=== PATIENT | male | born 1980 | race Caucasian/White ===

== ENCOUNTER 2021-07-13 20:40 | Emergency (ER) | payer MEDICAID, SELFPAY ==
--- NOTE | ~2021-07-13 | XR_ITS ---
EXAMINATION: XR chest 1V portable INDICATION: Cough, labored breathing TECHNIQUE: Portable AP chest at 2117 hours COMPARISON: None available FINDINGS: The heart size is normal. There are minimal opacities of the mid and lower lung zones. No p leural effusion or pneumothorax is identified. The visualized osseous structures are unremarkable. IMPRESSION: 1. Minimal airspace opacities of the mid and lower lung zones, consistent with atelectasis versus pne umonia versus pulmonary edema. Reviewed, dictated and finalized at location F. IMPRESSION: 1. Minimal airspace opacities of the mid and lower lung zones, consistent with atelectasis versus pneumonia versus pulmonary edema.
[2021-07-13 20:42] VITALS: BP 142/84; PULSE 97; RESP 15; TEMP 37; O2SAT 98
[2021-07-13 20:50] VITALS: PULSE 100; RESP 16
--- NOTE | 2021-07-13 20:55 | ECG_ITS ---
Measurements Intervals [place] Rate: 102 P: 61 [place]: 138 QRS: 18 QRSD: 102 T: 17 QT: 365 QTc: 476 Interpretive Statements SINUS TACHYCARDIA POSSIBLE LEFT ATRIAL ENLARGEMENT [-0.1mV P WAVE IN V1/V2] POSSIBLE RIGHT VENTRICULAR CONDUCTION DELAY [RSR (QR) IN V1/V2] ABNORMAL RHYTHM ECG NO PREVIOUS ECG AVAILABLE FOR COMPARISON Electronically Signed On 07-14-2021 13:41:43 CDT by Ynes Ureña M.D.
[2021-07-13] MEDS: ALBUTEROL SULFATE NEB 2.5 MG/0.5 ML INH INHALATION (20:58)
[2021-07-13 21:05] VITALS: PULSE 102; RESP 12
--- NOTE | 2021-07-13 21:05 | ED.SOB ---
HPI - SOB/Dyspnea General Chief Complaint: Shortness of Breath/Dyspnea Stated Complaint: SOB Time Seen by Provider: 07/13/21 20:45 Source: patient Mode of arrival: EMS Limitations: no limitations History of Present Illness HPI Narrative: Pt presents with SOB worsening over the last few days. Pt denies fever. Pt has asthma history and has had intermittent SOB since getting covid last year. Pt is worried he may have pneumonia. MD elicited complaint: shortness of breath Pertinent past history: asthma Timing: constant Severity: moderate Exacerbating factors: exertion Relieving factors: bronchodilators Known history of: asthma Treatment prior to arrival: bronchodilator Related Data Allergies Allergy/AdvReac Type Severity Reaction Status Date / Time No Known Allergies Allergy Verified 07/13/21 20:47 Review of Systems Review of Systems: All systems reviewed & are unremarkable except as noted in HPI and below Exam Const: General: no acute distress Orientation/consciousness: patient oriented x3 HENMT: Head: normal to inspection Neck: Neck: normal visual inspection and no lymphadenopathy Chest: Chest palpation & inspection: normal inspection of the chest Resp: Effort & Inspection: retractions, tachypneic and uses accessory muscles Auscultation: wheezes Cardio: Rate: tachycardic GI: GI Palp: Yes Soft to palpation Auscultation: normal bowel sounds Skin: General skin exam: normal color Rashes: no rashes Neuro: General: patient oriented x3, moves all extremities, no meningeal signs and no focal motor deficits Extrem: General: normal to inspection Psych: Mental Status: mental status grossly normal Thought content: Yes Normal thought content present Course Vital Signs Vital signs: Vital Signs Temperature 98.6 F 07/13/21 20:42 Pulse Rate 97 07/13/21 20:42 Respiratory Rate 15 07/13/21 20:42 Blood Pressure 142/84 H 07/13/21 20:42 Pulse Oximetry 98 07/13/21 20:42 Temperature 98.6 F 07/13/21 20:42 Pulse Rate 102 H 07/13/21 21:14 Respiratory Rate 12 07/13/21 21:05 Blood Pressure 142/84 H 07/13/21 20:42 Pulse Oximetry 98 07/13/21 21:14 MDM - SOB/Dyspnea Lab Data Result diagrams: 07/13/21 21:34 07/13/21 21:35 Labs: Lab Results 04/07/13/21 07/13/21 Range/Units 21:34 21:35 21:35 WBC 9.4 (4.5-10.0) K/mm3 RBC 4.42 L (4.6-6.20) M/mm3 Hgb 13.2 L (14.0-18.0) g/dL Hct 38.9 L (42.0-52.0) % MCV 88.0 (80-100) fl MCH 29.9 (26-34) pg MCHC 33.9 (32-36) g/dl RDW 12.7 (11.5-14.5) % Plt Count 232 (150-375) k/mm3 MPV 11.5 H (7.4-10.4) fl Immature Gran % (Auto) 0.2 (0-0.5) % Neut % (Auto) 71.2 (45.5-73.1) % Lymph % (Auto) 16.9 L (18.3-44.2) % [place] % (Auto) 7.2 (2.6-8.5) % Eos % (Auto) 3.4 (0-4.4) % Baso % (Auto) 1.1 (0.2-1.2) % Lymph # (Auto) 1.59 (0.9-3.2) K/mm3 [place] # (Auto) 0.7 H (0.1-0.6) K/mm3 Eos # (Auto) 0.3 (0-0.3) K/mm3 Baso # (Auto) 0.1 (0.0-0.1) K/mm3 Abs Immat Gran (auto) 0.02 (0.00-0.031) K/mm3 Absolute Neuts (auto) 6.7 (1.3-6.7) K/mm3 Absolute Nucleated RBC 0.0 (0.0-0.012) K/mm3 Nucleated RBC % 0.0 (0.0-0.2) % % Immature Plt Fraction 7.6 (0.9-11.2) % Sodium 135 L (137-145) mmol/L Potassium 3.4 (3.4-5.0) mmol/L Chloride 102 (98-107) mmol/L Carbon Dioxide 23 (22-30) mmol/L Anion Gap 10 (8-16) mmol/L BUN 22 H (9-20) mg/dL Creatinine 0.90 (0.7-1.3) mg/dL Estim Creat Clear Calc 127 ml/min Estimated GFR > 60 (59 - ) Glucose 116 H (65-110) mg/dL Calcium 9.1 (8.4-10.2) mg/dL Magnesium 2.1 (1.6-2.3) mg/dL Total Bilirubin 0.8 (0.2-1.3) mg/dL AST 105 H (17-59) U/L ALT 51 H (4-50) U/L Alkaline Phosphatase 93 (38-126) U/L NT-Pro-B Natriuret Pep Pending Total Protein 8.0 (6.3-8.2) g/dL Albumin 4.7 (3.5-5.1) g/dL ECG Data EK
[2021-07-13] MEDS: methylPREDNISolone SOD SUCC 125 MG VIAL IV PUSH (21:11)
[2021-07-13 21:14] VITALS: PULSE 102; O2SAT 98
[2021-07-13 21:43] LABS: Basophils Absolute Auto 0.1 K/mm3 (0.0-0.1); Basophils Percent Auto 1.1 % (0.2-1.2); Eosinophils Absolute Auto 0.3 K/mm3 (0-0.3); Eosinophils Percent Auto 3.4 % (0-4.4); Hematocrit 38.9 % (42.0-52.0); Hemoglobin 13.2 g/dL (14.0-18.0); Immature Granulocyte Absolute 0.02 K/mm3 (0.00-0.031); Immature Granulocyte Percent A 0.2 % (0-0.5); Immature Platelet Fraction Pct 7.6 % (0.9-11.2); Lymphocytes Absolute Auto 1.59 K/mm3 (0.9-3.2); Lymphocytes Percent Auto 16.9 % (18.3-44.2); Mean Corpuscular HGB Conc 33.9 g/dl (32-36); Mean Corpuscular Hemoglobin 29.9 pg (26-34); Mean Platelet Volume 11.5 fl (7.4-10.4); Monocytes Absolute Auto 0.7 K/mm3 (0.1-0.6); Monocytes Percent Auto 7.2 % (2.6-8.5); Neutrophils Absolute Auto 6.7 K/mm3 (1.3-6.7); Neutrophils Percent Auto 71.2 % (45.5-73.1); Platelet Count Result 232 k/mm3 (150-375); Red Blood Count 4.42 M/mm3 (4.6-6.20); Red Cell Distribution Width 12.7 % (11.5-14.5); White Blood Count 9.4 K/mm3 (4.5-10.0)
[2021-07-13 21:51] LABS: Alanine Aminotransferase 51 U/L (4-50); Albumin Level 4.7 g/dL (3.5-5.1); Alkaline Phosphatase 93 U/L (38-126); Anion Gap 10 mmol/L (8-16); Aspartate Amino Transferase 105 U/L (17-59); Bilirubin,Total 0.8 mg/dL (0.2-1.3); Blood Urea Nitrogen 22 mg/dL (9-20); Calcium 9.1 mg/dL (8.4-10.2); Carbon Dioxide 23 mmol/L (22-30); Chloride 102 mmol/L (98-107); Estimated CRCL calculation 127 ml/min; Estimated Glomerular Filt Rate > 60; Glucose 116 mg/dL (65-110); Magnesium 2.1 mg/dL (1.6-2.3); Potassium 3.4 mmol/L (3.4-5.0); Sodium 135 mmol/L (137-145)
[2021-07-13 22:11] LABS: NT Pro B Type Natriuretic Pept 118 pg/mL (5-100)
[2021-07-13 22:27] VITALS: BP 117/90; PULSE 110; RESP 22; O2SAT 100
[2021-07-13 23:00] VITALS: BP 123/87; PULSE 88; RESP 14; O2SAT 97
== END 2021-07-13 23:00 | disposition home or self-care (01) ==
PROVIDERS: Emergency Provider Emergency Medicine
DX: J45.901 Unspecified asthma with (acute) exacerbation (principal); Z86.16 Personal history of COVID-19; R00.0 Tachycardia, unspecified; R94.31 Abnormal electrocardiogram [ECG] [EKG]
CPT/HCPCS: 36415; 71045; 80053; 83735; 83880; 85025; 85055; 87040; 93005; 94640; 96374; 99284; J2930

== ENCOUNTER 2021-07-14 10:10 | Emergency (ER) | payer MEDICAID, SELFPAY ==
[2021-07-14 10:11] VITALS: BP 113/67; PULSE 102; RESP 22; TEMP 36.8; O2SAT 95
--- NOTE | 2021-07-14 10:31 | ED.ASTHMA ---
HPI - Asthma General Chief Complaint: Asthma Stated Complaint: asthma attack Time Seen by Provider: 07/14/21 10:26 Source: patient Mode of arrival: ambulatory Limitations: no limitations History of Present Illness HPI Narrative: Patient is a 40-year-old male complaining of asthma attack described as shortness of breath and cough, brought in by EMS from [facility], started today. Patient was seen here yesterday for similar complaints was given a prescription for oral antibiotics and albuterol MDI. Patient states that he was in [facility] and was never given his albuterol MDI. When paramedics picked him up from [facility] he was given an albuterol treatment which provided relief and now arrival to the emergency room symptoms resolved. Patient denies any chest pain, abdominal pain, nausea, vomiting, diaphoresis, fever or chills. Related Data Allergies Allergy/AdvReac Type Severity Reaction Status Date / Time No Known Allergies Allergy Verified 07/13/21 20:47 Review of Systems Review of Systems: Per HPI All systems reviewed & are unremarkable except as noted in HPI and below PMFSH Comments Past medical history: Asthma Family history: Unknown Social history: Positive for smoker, no EtOH or drug use Exam Const: General: cooperative, comfortable, no acute distress, well developed, alert and awake; No confusion Nutritional Appearance: obese Orientation/consciousness: oriented to person, oriented to place, oriented to time, patient oriented x3 and No confusion Limitations: no limitations HENMT: Head: normal to inspection, normocephalic and atraumatic Ears: hearing grossly normal bilaterally, TM normal on the right and TM normal on the left General nose exam: Normal external nose present, Normal nares present and No nasal discharge present Face and sinus: normal facial exam Mouth: Yes Normal oral and palatal mucosa present, Yes lip normal, Yes tongue normal and Yes oropharynx normal Throat: posterior oropharynx normal, tonsils normal and uvula midline Eyes: General: appearance normal, both eyes and all related structures Pupils: Equal, round and reactive pupils present EOM: EOMs intact bilaterally Neck: Neck: normal visual inspection, full ROM, no lymphadenopathy and no meningeal signs Chest: Chest palpation & inspection: normal inspection of the chest Resp: Effort & Inspection: normal respiratory effort, able to speak in complete sentences, no respiratory distress and not tachypneic Auscultation: clear to auscultation bilaterally, no crackles, no rales, no rhonchi and wheezes Cardio: Rate: regular rate Rhythm: regular rhythm GI: Inspection: normal to inspection GI Palp: No abdominal tenderness, Yes Soft to palpation, No Tenderness to palpation present (GI), No Guarding due to palpation present (GI), No Rigid due to palpation and No Rebound tenderness present Auscultation: normal bowel sounds : General: Yes no CVA tenderness Back/Spine/Pelvis: Back: no CVA tenderness Skin: General skin exam: normal color, no rashes or lesions noted, elasticity normal and turgor normal Neuro: General: oriented to person, oriented to place, oriented to time, patient oriented x3, tone normal, moves all extremities, Normal light touch and pain sensation, no meningeal signs, no focal motor deficits, CN's II-XI intact bilaterally and No confusion Cranial nerves: Yes Equal, round and reactive pupils present Speech: No Abnormal speech present Sensory Exam: No Sensory deficit (Neuro) Extrem: General: normal to inspection, full ROM and capillary refill normal Psych: Appearance: grossly normal and well kempt Mental Status: mental status grossly normal Speech and movement: Normal speech and movement present Affect: normal affect Attitude: cooperative Thought process: Normal thought process present Thought content: Yes Normal thought content present Insight: Good insight present (Psych) Judgement: Good judgement present (Psych) Course Vital Signs Vi
[2021-07-14 10:33] VITALS: BP 121/74; PULSE 84; RESP 18; O2SAT 95
[2021-07-14] MEDS: predniSONE 20 MG TABLET 60 MG PO (10:39)
[2021-07-14] MEDS: ALBUTEROL SULFATE NEB 2.5 MG/0.5 ML INH 5 MG INHALATION (10:55)
[2021-07-14 10:56] VITALS: PULSE 105; RESP 16
[2021-07-14 11:03] VITALS: PULSE 98; RESP 20
--- NOTE | 2021-07-14 11:25 | PC.NURSE ---
Food tray ordered per pt request and with permission of NICHOLAS Alford
[2021-07-14 12:20] VITALS: BP 138/78; PULSE 101; RESP 18; O2SAT 98
--- NOTE | 2021-07-14 12:27 | PC.NURSE ---
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 pt is concerned about how to get to police station due to lack of shoes and his wallet being at the police department. [facility] called and states they will be able to provide a few bus tokens and possibly some slippers.
[2021-07-14 12:42] VITALS: PULSE 80; RESP 18; O2SAT 99
--- NOTE | 2021-07-14 13:16 | PCCCNOTE ---
Late entry: Phone call received at 1228 from bedside RN that patient needs some slippers/shoes and bus tokens. Down to ER met with bedside RN Meghan provided a pair of shoes, socks and bus tokens as requested.
== END 2021-07-14 12:43 | disposition home or self-care (01) ==
PROVIDERS: Emergency Provider Emergency Medicine
DX: J45.901 Unspecified asthma with (acute) exacerbation (principal); F17.200 Nicotine dependence, unspecified, uncomplicated
CPT/HCPCS: 94640; 99283; J7512